=== PATIENT | female | born 1985 | race Caucasian/White ===

== ENCOUNTER 2018-03-31 14:11 | Inpatient (IN) | payer OTHER ==
[~2018-03-31] VITALS: Ht 160 cm; Wt 46.9 kg
[~2018-03-31 14:11] MED LIST: DICYCLOMINE HCL20 MG PO; NEURONTIN300 MG PO; SYNTHROID,LEV100 MCG PO; VISTARIL50 MG PO; ZYPREXA5 MG PO
[2018-03-31 15:40] VITALS: BP 123/72
[2018-03-31] MEDS ORDERED: Synthroid,Levo50 MCG PO (15:57)
[2018-03-31] MEDS ORDERED: BUSPIRONE15 MG PO (15:57)
[2018-03-31] MEDS ORDERED: VITAMIN D32000 UNI1 PO (15:58)
[2018-03-31 16:00] VITALS: BP 123/72
[2018-03-31 16:44] LABS: BILIRUBIN NEGATIVE (NEGATIVE); BLOOD NEGATIVE (NEGATIVE); CLARITY SL CLOUDY (CLEAR); COLOR YELLOW (YELLOW); GLUCOSE NEGATIVE (NEGATIVE); KETONE NEGATIVE (NEGATIVE); LEUKO ESTERASE NEGATIVE (NEGATIVE); NITRITE NEGATIVE (NEGATIVE); PH 6.5 (5.0-9.0)
[2018-03-31 16:53] LABS: MUCOUS TRACE
[2018-03-31 16:54] LABS: URINE AMPHETAMINES < 1000 (1000ng/ml); URINE BARBITURATES < 200 (200ng/ml); URINE BENZODIAZEPINES > 200 (200ng/ml); URINE CANNABINOIDS (THC) < 50 (50ng/ml); URINE COCAINE > 300 (300ng/ml); URINE METHADONE < 300 (300ng/ml); URINE OPIATES > 300 (300ng/ml)
[2018-03-31 16:58] LABS: URINE PHENCYCLIDINE < 25 (25ng/ml)
[2018-03-31 17:22] LABS: BASO % 0.5 % (0.0-1.0); EOS # 0.5 10*3/uL (0.0-0.4); HEMATOCRIT 39.3 % (37.0-47.0); HEMOGLOBIN 12.6 g/dl (12.0-16.0); LYMPH # 2.3 10*3/uL (1.3-4.4); LYMPH % 35.8 % (27.0-41.0); MEAN CELL VOLUME 96.1 fl (81.0-99.0); MEAN CORPUSCULAR HGB 30.8 pg (27.0-31.0); MEAN CORPUSCULAR HGB CONC 32.1 g/dl (33.0-37.0); MEAN PLATELET VOLUME 11.1 fl (9.6-12.3); MONO # 0.4 10*3/uL (0.1-1.0); MONO % 6.4 % (3.0-9.0); NEUT # 3.2 10*3/uL (2.3-7.9); NEUT % 50.1 % (47.0-73.0); PLATELET COUNT AUTOMATED 201 10*3/uL (130-400); RED BLOOD COUNT 4.09 10*6/uL (4.10-5.10); RED CELL DISTRI WIDTH 13.3 % (0-14.5); WHITE BLOOD COUNT 6.4 10*3/uL (4.8-10.8)
[2018-03-31 17:37] LABS: ALBUMIN 4.1 gm/dl (3.1-4.5); ALKALINE PHOSPHATASE 125 U/L (45-117); BUN 9 mg/dl (7-24); CHLORIDE 105 mmol/L (98-107); CREATININE 0.71 mg/dL (0.55-1.02); POTASSIUM 4.3 mmol/L (3.5-5.1); SGOT/AST 341 IU/L (3-35); SGPT/ALT 415 U/L (12-78); SODIUM 140 mmol/L (136-145); TOTAL PROTEIN 8.7 gm/dL (6.4-8.2)
[2018-03-31 17:41] LABS: BETA-HCG, QUANT < 1.0 mIU/mL (1-3); ETHYL ALCOHOL < 3.0 mg/dl (<3)
[2018-03-31] MEDS ORDERED: OLANZAPINE10 MG PO (18:18)
[2018-03-31] MEDS ORDERED: NEURONTIN800 MG PO (18:19)
[2018-03-31 20:00] VITALS: BP 114/64
[2018-04-01] VITALS (7 sets, daily range): BP systolic 80–124; BP diastolic 38–85
[2018-04-02 00:31] LABS: BASO % 0.3 % (0.0-1.0); EOS % 0.5 % (1.0-4.0); HEMATOCRIT 39.2 % (37.0-47.0); LYMPH # 1.8 10*3/uL (1.3-4.4); LYMPH % 20.9 % (27.0-41.0); MEAN CELL VOLUME 94.2 fl (81.0-99.0); MEAN CORPUSCULAR HGB 31.3 pg (27.0-31.0); MEAN CORPUSCULAR HGB CONC 33.2 g/dl (33.0-37.0); MEAN PLATELET VOLUME 11.5 fl (9.6-12.3); MONO # 0.5 10*3/uL (0.1-1.0); MONO % 5.4 % (3.0-9.0); NEUT # 6.3 10*3/uL (2.3-7.9); NEUT % 72.7 % (47.0-73.0); PLATELET COUNT AUTOMATED 242 10*3/uL (130-400); RED BLOOD COUNT 4.16 10*6/uL (4.10-5.10); RED CELL DISTRI WIDTH 13.1 % (0-14.5); WHITE BLOOD COUNT 8.7 10*3/uL (4.8-10.8)
[2018-04-02 01:18] VITALS: BP 110/70
[2018-04-02 02:35] LABS: URINE AMPHETAMINES < 1000 (1000ng/ml); URINE BARBITURATES < 200 (200ng/ml); URINE BENZODIAZEPINES > 200 (200ng/ml); URINE CANNABINOIDS (THC) < 50 (50ng/ml); URINE COCAINE > 300 (300ng/ml); URINE METHADONE < 300 (300ng/ml); URINE OPIATES > 300 (300ng/ml)
[2018-04-02 02:43] LABS: URINE PHENCYCLIDINE < 25 (25ng/ml)
[2018-04-02 04:00] VITALS: BP 110/60
[2018-04-02 05:37] LABS: ALBUMIN 3.9 gm/dl (3.1-4.5); ALKALINE PHOSPHATASE 114 U/L (45-117); BUN 8 mg/dl (7-24); CHLORIDE 113 mmol/L (98-107); CREATININE 0.65 mg/dL (0.55-1.02); POTASSIUM 3.6 mmol/L (3.5-5.1); SGOT/AST 229 IU/L (3-35); SGPT/ALT 352 U/L (12-78); SODIUM 145 mmol/L (136-145); TOTAL PROTEIN 8.2 gm/dL (6.4-8.2)
[2018-04-02 08:00] VITALS: BP 125/65
[2018-04-02 12:00] VITALS: BP 93/67
[2018-04-02 20:00] VITALS: BP 92/54
== END 2018-04-03 00:15 | disposition left against medical advice (07) | DRG 894 ==
LOC: 4E 14:11 → ICCU 04-02 00:24
PROVIDERS: Family Medicine; Registered Nurse
DX: F11.23 Opioid dependence with withdrawal (principal); G93.41 Metabolic encephalopathy; R44.3 Hallucinations, unspecified; E03.9 Hypothyroidism, unspecified; F13.10 Sedative, hypnotic or anxiolytic abuse, uncomplicated; Z53.21 Procedure and treatment not carried out due to patient leaving prior to being seen by health care provider; F14.10 Cocaine abuse, uncomplicated; Z83.3 Family history of diabetes mellitus; Z84.89 Family history of other specified conditions; Z72.0 Tobacco use; Z79.899 Other long term (current) drug therapy; Z71.6 Tobacco abuse counseling